=== PATIENT | female | born 1995 | race Caucasian/White ===

== ENCOUNTER 2024-08-12 07:15 | Outpatient (CLI) | payer OTHER, SELFPAY ==
[2024-08-12 07:49] LABS: Alanine Aminotransferase 46 U/L (6-35); Albumin Level 4.2 g/dL (3.5-5.1); Alkaline Phosphatase 84 U/L (38-126); Anion Gap 7 mmol/L (4-12); Aspartate Amino Transferase 35 U/L (14-36); Bilirubin,Total 0.4 mg/dL (0.2-1.3); Blood Urea Nitrogen 10 mg/dL (7-17); Carbon Dioxide 25 mmol/L (22-30); Chloride 106 mmol/L (98-107); Cholesterol 124 mg/dL (0-200); Estimated Glomerular Filt Rate > 60; Glucose 105 mg/dL (65-110); HDL Direct 46 mg/dL; Potassium 4.1 mmol/L (3.4-5.0); Sodium 138 mmol/L (137-145); Triglycerides 60 mg/dL (<150)
[2024-08-12 07:59] LABS: LDL Cholesterol Direct 48 mg/dL
[2024-08-12 08:38] LABS: Free T4 Free Thyroxine 1.09 ng/mL (0.78-2.19)
[2024-08-12 09:35] LABS: Hemoglobin A1C 5.6 % (<5.7)
[2024-08-14 02:28] LABS: Triiodothyronine T3 Free 3.4 pg/mL (2.3-4.2)
[2024-08-16 03:09] LABS: DHEA-Sulfate 250 mcg/dL (14-349)
== END 2024-08-12 07:16 | disposition home or self-care (01) ==
LOC: ANHLAB 07:17
PROVIDERS: Visit Provider Obstetrics & Gynecology
DX: N92.6 Irregular menstruation, unspecified (principal)
CPT/HCPCS: 36415; 80053; 80061; 82627; 83036; 83498; 84402; 84403; 84439; 84443; 86376